=== PATIENT | male | born 1990 | race African-American/Black ===

== ENCOUNTER 2017-10-14 10:43 | Emergency (ER) | payer SELFPAY ==
[~2017-10-14] VITALS: Ht 172.7 cm; Wt 83.5 kg
[2017-10-14 10:45] VITALS: BP 139/71
--- NOTE | 2017-10-14 11:20 | PHYS DOC ---
Past Medical History Past Medical History: No Pertinent History Past Surgical History: No Surgical History Alcohol Use: Occasionally Drug Use: Marijuana Adult General Chief Complaint Chief Complaint: KNEE INJURY HPI HPI Patient is a 27 year old male presents to the emergency department with a history of twisting his left knee 2 days ago. Patient states this happens frequently. He states that he had placed his knee splint on to help give him some support. Patient states he presented to the emergency department today for increased pain and discomfort. He denies any numbness or tingling down to his lower extremity. Patient is able to ambulate with a good steady gait. Patient denies taking medication for pain he states he has used icey hot with lidocaine with no relief. Review of Systems Review of Systems Constitutional: Denies fever or chills [] Eyes: Denies change in visual acuity, redness, or eye pain [] HENT: Denies nasal congestion or sore throat [] Respiratory: Denies cough or shortness of breath [] Cardiovascular: No additional information not addressed in HPI [] GI: Denies abdominal pain, nausea, vomiting, bloody stools or diarrhea [] : Denies dysuria or hematuria [] Musculoskeletal: Denies back pain. Left knee pain Integument: Denies rash or skin lesions [] Neurologic: Denies headache, focal weakness or sensory changes [] Endocrine: Denies polyuria or polydipsia [] All other systems were reviewed and found to be within normal limits, except as documented in this note. Current Medications Current Medications Current Medications Medications (Trade) Dose Ordered Sig/[facility] Start Time Stop Time Status Last Admin Dose Admin Ibuprofen (Motrin) 800 mg STK-MED ONCE 10/14/17 11:33 10/14/17 11:34 DC Allergies Allergies Allergies Coded Allergies Type Severity Reaction Last Updated Verified No Known Drug Allergies 10/14/17 No Physical Exam Physical Exam Constitutional: Well developed, well nourished, no acute distress, non-toxic appearance. [] HENT: Normocephalic, atraumatic, bilateral external ears normal, oropharynx moist, no oral exudates, nose normal. [] Eyes: PERRLA, EOMI, conjunctiva normal, no discharge. [] Neck: Normal range of motion, no tenderness, supple, no stridor. [] Cardiovascular:Heart rate regular rhythm Lungs & Thorax: no respiratory distress noted Skin: Warm, dry, no erythema, no rash. [] Back: No tenderness Extremities: No tenderness, no cyanosis, no clubbing, ROM intact, no edema. [] Neurologic: Alert and oriented X 3, normal motor function, normal sensory function, no focal deficits noted. [] Psychologic: Affect normal, judgement normal, mood normal. [] Current Patient Data Vital Signs Vital Signs Date Time Temp Pulse Resp B/P (MAP) Pulse Ox O2 Delivery O2 Flow Rate FiO2 10/14/17 10:45 98.2 69 18 97 Room Air 98.2 EKG EKG [] Radiology/Procedures Radiology/Procedures [][facility] [id number] [place] [address] IMAGING REPORT Signed PATIENT: COLTON ROBERTS ACCOUNT: [id number] : 1990 LOCATION: ER AGE: 27 SEX: M EXAM STATUS: REG ER ORD. PHYSICIAN: MARIVEL FRIEDMAN APRN REASON: left knee pain PROCEDURE: KNEE LEFT 4V Left knee with patella, 4 views, 10/14/2017: History: Knee injury, pain No fracture or dislocation is identified. There is mild soft tissue swelling anteriorly. No large joint effusion is seen. IMPRESSION: No acute bony abnormality is detected. DICTATED and SIGNED BY: YANICK SIMS MD DATE: 10/14/17 0852 CC: MARIVEL FRIEDMAN APRN; NO PCP; NON,STAFF ~ Course & Med Decision Making Course & Med Decision Making Pertinent Labs and Imaging studies reviewed. (See chart for details) Knee x-ray was negative for any bony abnormalities per radiology. Patient does have his own Chriss wrap here in the emergency department patient will be discharged home with recommendations for ibuprofen for pain and discomfort ice packs 20 minutes off 20 minutes several times a day. Will be provided with orthopedic to follow-up with. [[facility] [address] [place] [address] IMAGING REPORT Signed PATIENT: COLTON ROBERTS ACCOUNT: [id number] : 1990 LOCATION: ER AGE: 27 SEX: M EXAM STATUS: REG ER ORD. PHYSICIAN: MARIVEL FRIEDMAN APRN REASON: left knee pain PROCEDURE: KNEE LEFT 4V Left knee with patella, 4 views, 10/14/2017: History: Knee injury, pain No fracture or dislocation is identified. There is mild soft tissue swelling anteriorly. No large joint effusion is seen. IMPRESSION: No acute bony abnormality is detected. DICTATED and SIGNED BY: YANICK SIMS MD DATE: 10/14/17 1235 CC: MARIVEL FRIEDMAN APRN; NO PCP; NON,STAFF ~ ] Dragon Disclaimer Dragon Disclaimer This electronic medical record was generated, in whole or in part, using a voice recognition dictation system. Departure Departure Impression: Primary Impression: Left knee pain Disposition: 01 HOME, SELF-CARE Condition: STABLE Referrals: NO PCP (PCP) SAUNDRA ORTEGA MD Patient Instructions: Knee Pain, [id number] Additional Instructions: Activity as tolerated. Wear the Chriss wrap that you have for comfort. Ice packs on 20 minutes off torments several times a day. Elevation as much as possible. Ibuprofen for pain and discomfort. Follow-up with orthopedic within the week. Return back to person symptoms become worse. Problem Qualifiers Primary Impression: Left knee pain Chronicity: acute Qualified Codes: M25.562 - Pain in left knee MARIVEL FRIEDMAN APRN Oct 14, 2017 11:20
[2017-10-14] MEDS ORDERED: IBUPROFEN 800 MG TABLET. PO ONE ×2 (11:30→11:33)
--- NOTE | 2017-10-14 12:43 | RAD ---
Left knee with patella, 4 views, 10/14/2017: History: Knee injury, pain No fracture or dislocation is identified. There is mild soft tissue swelling anteriorly. No large joint effusion is seen. IMPRESSION: No acute bony abnormality is detected.
== END 2017-10-14 13:07 | disposition home or self-care (01) ==
LOC: ER 10:43
DX: M25.562 Pain in left knee (principal); F12.10 Cannabis abuse, uncomplicated; X50.9XXA Other and unspecified overexertion or strenuous movements or postures, initial encounter; Y93.89 Activity, other specified; Y99.8 Other external cause status; Y92.89 Other specified places as the place of occurrence of the external cause
CPT/HCPCS: 73564; 99284